=== PATIENT | female | born 1980 | race Two or more races ===

== ENCOUNTER 2020-05-10 19:09 | Emergency (ER) | payer OTHER ==
[2020-05-10 19:19] VITALS: BP 129/84; PULSE 88; TEMP 99.3; BMI 32.3
== END 2020-05-10 20:11 | disposition home or self-care (01) ==
LOC: FER 19:09
DX: T19.2XXA Foreign body in vulva and vagina, initial encounter (principal)
CPT/HCPCS: 99282-25